=== PATIENT | female | born 1955 | race Caucasian/White ===

== ENCOUNTER 2018-03-05 15:34 | Emergency (ER) | payer MEDICARE, MEDICAID ==
[~2018-03-05] VITALS: Ht 160 cm; Wt 67.0 kg
[~2018-03-05 15:34] MED LIST: HYDR-883 PO; HYDROcodone/APAP 5/325 TABLET ONE; HYDROcodone/APAP 5/325 TABLET PO ONE; HYDROmorphone 2 MG/ML, 1ML IM ONE; HYDROmorphone 2 MG/ML, 1ML ONE; ONDANSETRON ODT 4 MG ONE; ONDANSETRON ODT 4 MG PO ONE; PREG50CA PO; SERT100T5 PO; VITAMIN D PO
[2018-03-05 15:39] VITALS: BP 117/68
== END 2018-03-05 15:40 | disposition home or self-care (01) ==
LOC: ED 15:34
DX: G89.29 Other chronic pain (principal); M51.36 Other intervertebral disc degeneration, lumbar region; I10 Essential (primary) hypertension
CPT/HCPCS: 72110; 99284

== ENCOUNTER 2018-03-16 01:04 | Emergency (ER) | payer MEDICAID, MEDICARE, OTHER ==
[~2018-03-16] VITALS: Ht 160 cm; Wt 67.4 kg
[~2018-03-16 01:04] MED LIST changes: -HYDROcodone/APAP 5/325 TABLET ONE; -HYDROcodone/APAP 5/325 TABLET PO ONE; -HYDROmorphone 2 MG/ML, 1ML IM ONE; -HYDROmorphone 2 MG/ML, 1ML ONE; -ONDANSETRON ODT 4 MG ONE; -ONDANSETRON ODT 4 MG PO ONE
[2018-03-16 01:09] VITALS: BP 215/100
[2018-03-16] MEDS ORDERED: BP MED (01:24)
[2018-03-16] MEDS ORDERED: ZOLP-413 PO (01:24)
[2018-03-16] MEDS ORDERED: LISINOPRIL 20 MG TABLET ONE (01:29)
[2018-03-16] MEDS ORDERED: HYDROcodone/APAP 5/325 TABLET ONE (01:29)
[2018-03-16] MEDS ORDERED: HYDROcodone/APAP 5/325 TABLET PO ONE (01:30)
[2018-03-16] MEDS ORDERED: LISINOPRIL 20 MG TABLET PO ONE (01:30)
== END 2018-03-16 01:41 | disposition home or self-care (01) ==
LOC: ED 01:30
DX: G89.29 Other chronic pain (principal); M54.5 Low back pain; I10 Essential (primary) hypertension; Z88.8 Allergy status to other drugs, medicaments and biological substances
CPT/HCPCS: 99283

== ENCOUNTER 2018-03-21 14:26 | Emergency (ER) | payer MEDICAID ==
[~2018-03-21] VITALS: Ht 160 cm; Wt 67.3 kg
[~2018-03-21 14:26] MED LIST changes: +BP MED; +ZOLP-413 PO
[2018-03-21 14:44] VITALS: BP 158/101
[2018-03-21] MEDS ORDERED: MECLIZINE CHEWABLE 25 MG TAB PO ONE (15:00)
[2018-03-21 15:17] LABS: BASOPHILS # (AUTO) 0.03 x10^3/uL (0-0.1); BASOPHILS % (AUTO) 0 % (0-1); EOSINOPHILS # (AUTO) 0.11 x10^3/uL (0-0.4); EOSINOPHILS % (AUTO) 2 % (1-7); LYMPHOCYTES # (AUTO) 2.73 x10^3/uL (1-3.4); LYMPHOCYTES % (AUTO) 39 % (22-44); MD NO; MEAN CORPUSCULAR HEMOGLOBIN 29.6 pg (27.0-34.8); MEAN CORPUSCULAR HGB CONC 34.1 g/dL (32.4-35.8); MEAN CORPUSCULAR VOLUME 86.7 fL (80-100); MEAN PLATELET VOLUME 8.6 fL (7.4-10.4); MONOCYTES # (AUTO) 0.54 x10^3/uL (0.2-0.8); MONOCYTES % (AUTO) 8 % (2-9); NEUTROPHILS % (AUTO) 51 % (42-75); PLATELET COUNT 321 x10^3/uL (130-400); RED BLOOD COUNT 4.37 x10^6/uL (3.82-5.3); RED CELL DISTRIBUTION WIDTH 12.9 % (9.6-15.2)
[2018-03-21 15:23] LABS: ALBUMIN 3.9 g/dL (3.4-5.0); ANION GAP 8 mmol/L (5-15); CALCIUM 8.6 mg/dL (8.5-10.1); CHLORIDE 105 mmol/L (98-107); CREATININE 1.08 mg/dL (0.55-1.02)
[2018-03-21] MEDS ORDERED: ONDANSETRON ODT 4 MG PO ONE (15:30)
[2018-03-21] MEDS ORDERED: POTASSIUM CHLORIDE 20 MEQ TAB.ER.PRT PO ONE (16:00)
[2018-03-21] MEDS ORDERED: ONDANSETRON ODT 4 MG ONE (16:05)
[2018-03-21] MEDS ORDERED: POTASSIUM CHLORIDE 20 MEQ TAB.ER.PRT ONE (16:05)
[2018-03-21] MEDS ORDERED: MECLIZINE CHEWABLE 25 MG TAB ONE (16:05)
== END 2018-03-21 16:34 | disposition home or self-care (01) ==
LOC: ED 16:28
DX: R42 Dizziness and giddiness (principal); I10 Essential (primary) hypertension; E87.6 Hypokalemia; Z72.9 Problem related to lifestyle, unspecified
CPT/HCPCS: 36415; 80048; 82040; 85025; 93005; 99285

== ENCOUNTER 2018-06-17 11:29 | Emergency (ER) | payer MEDICARE, MEDICAID ==
[~2018-06-17] VITALS: Ht 160 cm; Wt 67.4 kg
[~2018-06-17 11:29] MED LIST changes: +HYDR-3652 PO; -HYDR-883 PO
[2018-06-17 11:43] VITALS: BP 147/97
== END 2018-06-17 12:40 | disposition home or self-care (01) ==
LOC: ED 12:35
DX: J30.89 Other allergic rhinitis (principal); I10 Essential (primary) hypertension; Z76.0 Encounter for issue of repeat prescription
CPT/HCPCS: 71046; 99284

== ENCOUNTER 2018-06-29 23:05 | Emergency (ER) | payer MEDICARE, MEDICAID ==
[~2018-06-29] VITALS: Ht 160 cm; Wt 64.0 kg
[2018-06-30] MEDS ORDERED: ONDANSETRON ODT 8 MG PO ONE
[2018-06-30 00:08] LABS: BASOPHILS # (AUTO) 0.01 x10^3/uL (0-0.1); BASOPHILS % (AUTO) 0 % (0-1); EOSINOPHILS % (AUTO) 0 % (1-7); LYMPHOCYTES # (AUTO) 0.68 x10^3/uL (1-3.4); LYMPHOCYTES % (AUTO) 19 % (22-44); MD NO; MEAN CORPUSCULAR HEMOGLOBIN 29.6 pg (27.0-34.8); MEAN PLATELET VOLUME 9.2 fL (7.4-10.4); MONOCYTES # (AUTO) 0.58 x10^3/uL (0.2-0.8); MONOCYTES % (AUTO) 16 % (2-9); NEUTROPHILS # (AUTO) 2.29 x10^3/uL (1.8-6.8); NEUTROPHILS % (AUTO) 64 % (42-75); PLATELET COUNT 200 x10^3/uL (130-400); RED BLOOD COUNT 4.43 x10^6/uL (3.82-5.3); RED CELL DISTRIBUTION WIDTH 12.8 % (9.6-15.2)
[2018-06-30 00:14] LABS: ALANINE AMINOTRANSFERASE 26 U/L (12-78); ALBUMIN 3.4 g/dL (3.4-5.0); ANION GAP 9 mmol/L (5-15); CALCIUM 9.1 mg/dL (8.5-10.1); CHLORIDE 106 mmol/L (98-107)
[2018-06-30 00:16] LABS: CREATININE 1.14 mg/dL (0.55-1.02)
[2018-06-30 00:17] LABS: ALKALINE PHOSPHATASE 84 U/L (45-117); BILIRUBIN,TOTAL 0.4 mg/dL (0.2-1.0); TOTAL PROTEIN 7.3 g/dL (6.4-8.2)
[2018-06-30] MEDS ORDERED: ACETAMINOPHEN 325 MG TABLET PO ONE (01:00)
[2018-06-30] MEDS ORDERED: ONDANSETRON ODT 8 MG ONE (01:09)
[2018-06-30] MEDS ORDERED: ACETAMINOPHEN 325 MG TABLET ONE (01:09)
[2018-06-30 01:27] VITALS: BP 111/67
== END 2018-06-30 01:29 | disposition home or self-care (01) ==
LOC: ED 23:21
DX: R11.2 Nausea with vomiting, unspecified (principal); R19.7 Diarrhea, unspecified; R10.13 Epigastric pain; R10.11 Right upper quadrant pain; I10 Essential (primary) hypertension; Z85.3 Personal history of malignant neoplasm of breast
CPT/HCPCS: 36415; 76700; 80053; 81003; 83690; 85025; 99284; Q0162

== ENCOUNTER 2019-08-30 16:40 | Emergency (ER) | payer MEDICARE, MEDICAID ==
[~2019-08-30] VITALS: Ht 154.9 cm; Wt 67.4 kg
[~2019-08-30 16:40] MED LIST changes: +SERT100T32 PO; -SERT100T5 PO
[2019-08-30 17:06] VITALS: BP 162/111
--- NOTE | 2019-08-30 17:34 | NUR ---
HAND BUFFER: PT TO ROOM FROM LOBBY
--- NOTE | 2019-08-30 18:16 | NUR ---
THIS IS A 64 YO F W/ C/O LEFT EYE PAIN AND SWELLING THAT STARTED AT 1100. PT STATES SHE HAS HAD AN EYE INFT FOR 2 YEARS IN BOTH EYES. REPORTS BLURRED VISION BILAT. PT TEARY. NO DISCHARGE OBSERVED. RESP EVEN AND UNLABORED. NADN. PT RESTING IN CHAIR W/ CALL LIGHT IN REACH. AWAITING ORDERS FROM PROVIDER.
[2019-08-30] MEDS ORDERED: IBUPROFEN 600 MG TABLET ONE (18:22)
[2019-08-30] MEDS ORDERED: HYDROcodone/APAP 5/325 TABLET ONE (18:23)
--- NOTE | 2019-08-30 18:25 | NUR ---
MED VICK FROM PHARMACY
[2019-08-30] MEDS ORDERED: HYDROcodone/APAP 5/325 TABLET PO ONE (18:30)
[2019-08-30] MEDS ORDERED: IBUPROFEN 200 MG TABLET PO ONE (18:30)
[2019-08-30] MEDS ORDERED: CIPROFLOXACIN OPHTH SOLN 0.3%, 5ML LEFTEYE SCH (20:00)
== END 2019-08-30 19:07 | disposition home or self-care (01) ==
LOC: ED 19:01
DX: H04.412 Chronic dacryocystitis of left lacrimal passage (principal); I10 Essential (primary) hypertension; Z85.3 Personal history of malignant neoplasm of breast
CPT/HCPCS: 99283

== ENCOUNTER 2020-08-17 12:51 | Outpatient (CLI) | payer MEDICARE, MEDICAID ==
[~2020-08-17 12:51] MED LIST changes: +HYDR-1067 PO; -HYDR-3652 PO
[2020-08-17 13:25] LABS: CALCIUM 8.5 mg/dL (8.5-10.1); CHLORIDE 109 mmol/L (98-107); CREATININE 0.94 mg/dL (0.55-1.02)
[2020-08-17 13:40] LABS: ANION GAP 5 mmol/L (5-15)
== END 2020-08-17 23:59 | disposition home or self-care (01) ==
LOC: LAB 12:51
PROVIDERS: ATTEND Ophthalmology
DX: Z01.812 Encounter for preprocedural laboratory examination (principal); I10 Essential (primary) hypertension; H04.202 Unspecified epiphora, left side; H04.02 Chronic dacryoadenitis; D51.3 Other dietary vitamin B12 deficiency anemia; G25.2 Other specified forms of tremor; R27.0 Ataxia, unspecified
CPT/HCPCS: 36415; 80048; 82607; 84207; 84425; 84591

== ENCOUNTER → 2020-09-04 | Outpatient (CLI) | payer MEDICARE, MEDICAID | END | disposition home or self-care (01) | LOC: STAR 11:09 | PROVIDERS: ATTEND Family Medicine | DX: Z01.818 Encounter for other preprocedural examination (principal); Z01.89 Encounter for other specified special examinations; Z01.812 Encounter for preprocedural laboratory examination; R79.1 Abnormal coagulation profile | CPT/HCPCS: 93005 ==